=== PATIENT | male | born 1990 | race African-American/Black ===

== ENCOUNTER 2018-06-12 16:29 | Emergency (ER) | payer OTHER ==
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
[2018-06-12] MEDS ORDERED: LIDOCAINE 1% INJ-PF (10 MG/ML) 30 ML SDV INJ ONE (17:59)
[2018-06-12] MEDS ORDERED: ACETAMINOPHEN 325 MG TABLET PO ONE (18:02)
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
[2018-06-12 19:33] VITALS: BP 125/74
== END 2018-06-12 19:10 | disposition home or self-care (01) ==
LOC: ER 16:29
DX: S01.01XA Laceration without foreign body of scalp, initial encounter (principal); S01.81XA Laceration without foreign body of other part of head, initial encounter; R68.84 Jaw pain; M54.2 Cervicalgia; M25.511 Pain in right shoulder; V49.50XA Passenger injured in collision with unspecified motor vehicles in traffic accident, initial encounter; Y93.84 Activity, sleeping
CPT/HCPCS: 70450; 70486; 72125; 99284